=== PATIENT | male | born 1985 | race African-American/Black ===

== ENCOUNTER 2018-08-27 21:15 | Emergency (ER) | payer MEDICAID ==
[~2018-08-27] VITALS: Ht 188 cm; Wt 81.0 kg
[2018-08-28 01:39] VITALS: BP 174/100
== END 2018-08-28 01:40 | disposition home or self-care (01) ==
LOC: ER 21:15
DX: J02.9 Acute pharyngitis, unspecified (principal); R05 Cough; F12.10 Cannabis abuse, uncomplicated; F17.290 Nicotine dependence, other tobacco product, uncomplicated
CPT/HCPCS: 99283; 99406